=== PATIENT | female | born 1950 | race Caucasian/White ===

== ENCOUNTER 2017-01-04 08:08 | Observation (INO) | payer MEDICARE, BC ==
[2016-12-31 11:42] LABS: Hematocrit 45 % (35-47); Hemoglobin 14.5 g/dl (12.0-16.0); Mean Corpuscular HGB Conc 32 g/dl (31-36); Mean Corpuscular Hemoglobin 29 pg (27-31); Mean Corpuscular Volume 90 fL (80-97); Mean Platelet Volume 8 um3 (7.4-10.4); Red Blood Count 5.02 10^6/ul (4.0-5.4); Red Cell Distribution Width 14 % (10.5-15); White Blood Count 7.5 10^3/ul (3.5-10.8)
[2016-12-31 11:55] LABS: BUN/Creatinine Ratio 21.3 (8-20); Calcium 9.6 mg/dL (8.6-10.3); EGFR African American 92.6 (>60); Potassium 4.1 mmol/L (3.5-5.0)
[~2017-01-04 08:08] MED LIST: Bacitracin IV* 50,000 UNITS INJ ONE; Buffered Lidocaine 0.9% SYRIN* 5 ML/SYR SYRINGE INTRADERM ONE; Famotidine TAB* 20 MG PO ONE; Lidocaine 1% MPF wEPI 200,000* 30 ML SDV ONE; Thrombin 5,000 UNITS* 1 APPLIC KIT - topical use - TOPICAL ONE
[2017-01-04] MEDS ORDERED: ceFAZolin 2 GM PREMIX(*) 2 GM/50 ML BAG IVPB ONE (08:10)
[2017-01-04] MEDS ORDERED: Buffered Lidocaine 0.9% SYRIN* 5 ML/SYR SYRINGE ONE (08:11)
[2017-01-04] MEDS ORDERED: Famotidine TAB* 20 MG ONE (08:11)
[2017-01-04] MEDS ORDERED: fentaNYL* 50 MCG/ML 2 ML VIAL (100 MCG VIAL) ONE ×3 (09:59→12:29)
[2017-01-04] MEDS ORDERED: Propofol* 10 MG/ML 20 ML BTL IV PUSH ONE (09:59)
[2017-01-04] MEDS ORDERED: Lidocaine 2% PF * 5 ML VIAL ONE (09:59)
[2017-01-04] MEDS ORDERED: HYDROcodone/ACETAMIN 5-325 MG* 1 TAB PO PRN (10:54)
[2017-01-04] MEDS ORDERED: HYDROmorphone* 1 MG/ML 1 ML SYR IV PRN (10:54)
[2017-01-04] MEDS ORDERED: DiMENhydriNATE IV* 50 MG/ML VIAL IV PUSH PRN (10:54)
[2017-01-04] MEDS ORDERED: Ondansetron INJ* 2 MG/ML VIAL IV PRN (11:19)
[2017-01-04] MEDS ORDERED: Acetaminophen TAB* 325 MG PO PRN (11:19)
[2017-01-04] MEDS ORDERED: ALPRAZolam TAB* 0.25 MG PO PRN (11:21)
[2017-01-04] MEDS ORDERED: HYDROcodone/ACETAMIN 5-325 MG* 1 TAB ONE (11:54)
[2017-01-04] MEDS: fentaNYL* 50 MCG/ML 2 ML VIAL (100 MCG VIAL) IV PRN ×3 (11:55→12:29)
--- NOTE | 2017-01-04 13:23 | RAD ---
Indication: Lumbar discectomy. Comparison: December 27, 2016 MRI. Technique: Prone crosstable lateral lumbar sacral spine 1035 hours Report: Tissue retractor and linear metallic instrument at the level of the L5-S1 facet joints moderate L5-S1 disc space narrowing. IMPRESSION: Intraoperative control film.
[2017-01-04] MEDS ORDERED: DiMENhydriNATE IV* 50 MG/ML VIAL ONE (13:31)
[2017-01-04] MEDS: HYDROcodone/ACETAMIN 5-325 MG* 1 TAB PO PRN ×2 (17:55→22:38)
[2017-01-05] MEDS: HYDROcodone/ACETAMIN 5-325 MG* 1 TAB PO PRN ×2 (05:55→11:03)
--- NOTE | 2017-01-05 07:40 | PN ---
Progress Note - Progress Note SOAP: Subjective: []POD # 1 Pre op leg pain relieved Patient does note increased numbness in right foot Strength Ok Moderate incisional pain Objective: []Motor intact Dressing intact Decreased sensation sole right foot Assessment: []Satis post op course Plan: []D/C today D/C instructions given
[2017-01-05 07:56] VITALS: BP 145/79
[2017-01-05] MEDS ORDERED: DiMENhydriNATE IV* 50 MG/ML VIAL IV PUSH ONE (08:15)
[2017-01-05] MEDS ORDERED: PARoxetine HCL TAB* 40 MG PO SCH (09:00)
[2017-01-05] MEDS ORDERED: Omeprazole CAP* 20 MG PO SCH (09:00)
[2017-01-05] MEDS ORDERED: Cholecalciferol TAB* 1000 UNITS PO SCH (09:00)
[2017-01-05] MEDS ORDERED: Atorvastatin* 20 MG TAB PO SCH (09:00)
--- NOTE | 2017-01-06 00:52 | OP ---
DATE OF OPERATION: 01/04/17 - ROOM #332 DATE OF : 52 SURGEON: Zeb Fernandez MD SAFETY INVESTIGATOR/CAUSE ANALYST: ELENA Younger ANESTHESIOLOGIST: Marc Guillory MD ANESTHESIA: General. PRE-OP DIAGNOSIS: Recurrent herniated nucleus pulposus, L5-S1 on the right. POST-OP DIAGNOSIS: Recurrent herniated nucleus pulposus, L5-S1 on the right. OPERATIVE PROCEDURE: Redo lumbar diskectomy at L5-S1 on the right with microdissection. DESCRIPTION OF PROCEDURE: After satisfactory general anesthesia was obtained, the patient was placed on the operating room table in a prone position with the chest supported on the Cole frame and the back slightly flexed. The lumbar region was then clipped, prepped, and draped in a sterile manner for revision lumbar diskectomy and her previous incision was infiltrated with 1% Xylocaine with epinephrine after which it was turned down sharply to the level of the lumbar fascia and the scar. The fascia and scar tissue was divided along the spinous processes from L5 to the sacrum on the right side. An intraoperative x- ray was obtained verifying localization of the L5-S1 interspace, after which scar tissue was dissected free from the previous laminectomy site. The laminectomy was extended superiorly until normal dura was encountered as well as inferiorly as preoperative x-ray studies had shown an inferior migration of an extruded disk fragment. At this point in the procedure, the operating microscope was brought into the field and the remainder of the procedure was done under microscopic visualization. Utilizing microdissection, epidural venous structures were coagulated and divided and the scar tissue was dissected free from the lateral edge of the dura. With additional inferior exposure, there was noted to be a freely extruded disk fragment extending down over the S1 vertebral body. This was removed in several fragments. This was in the axillary region of nerve root exposure and with additional dissection, it was noted to be actually sitting between the dural sac and what was likely the S2 nerve root as an additional larger nerve root was noted to be out further laterally. This larger nerve root out laterally remained tethered down by scar tissue. A blunt hook was able to be passed beneath this nerve root. There was not any significant compromise. At the conclusion of the decompression, the nerve roots and thecal sac were noted to be free in their course. After assuring adequate hemostasis, the wound was thoroughly irrigated after which a piece of Gelfoam was placed over the laminectomy defect. The fascia was then reapproximated with 0 Vicryl suture. The subcutaneous tissues were closed with 3-0 Vicryl suture and the skin closed with skin clips. The estimated blood loss was less than 50 cc and the final sponge, padding, and needle counts were correct. The patient was taken to the recovery room extubated and in stable condition. [id number]/[facility] #: [id number] MTDD
--- NOTE | 2017-01-12 05:08 | DS ---
DISCHARGE SUMMARY: DATE OF ADMISSION: 01/04/17 DATE OF DISCHARGE: 01/05/17 DISCHARGE DIAGNOSIS: Recurrent herniated nucleus pulposus, L5-S1 on the right. SPECIAL PROCEDURE: Redo lumbar diskectomy at L5-S1 on the right. HOSPITAL COURSE: This 66-year-old female was seen in the office with a recurrent right-sided lumbar radiculopathy. On 11/27/15, she underwent a lumbar diskectomy at L5-S1 on the right and recovered well postoperatively. Several weeks ago, she developed recurrent pain in the low back and right lower extremity. MRI of the lumbar spine showed a recurrent herniated disk at L5-S1 on the right. She was admitted at this time for elective surgical treatment. On the day of admission, she was taken to surgery where under general anesthesia , a lumbar diskectomy at L5- S1 on the right redo operation was carried out. Postoperatively, she was feeling well. Preoperative right lower extremity symptoms were improving. She was ambulating independently and she was eating, drinking, and voiding without difficulty. Pain was well-controlled with oral pain medications. On the first postoperative day, she was discharged home to the care of her family. DISCHARGE INSTRUCTIONS: Including wound care and activity level were discussed with the patient and provided. She will be seen in office in 7 to 10 days for followup and staple removal. DISCHARGE MEDICATIONS: None. ELENA GARCIA [id number]/[facility] #: [id number] MTDSurjit
== END 2017-01-05 11:05 | disposition home or self-care (01) ==
LOC: OR 08:08 → SSU 13:51
PROVIDERS: ADMIT Neurological Surgery; ATTEND Neurological Surgery
PROC: 01NB0ZZ Release Lumbar Nerve, Open Approach (ICD-10-PCS; 2017-01-04)
PROC: 0SB20ZZ Excision of Lumbar Vertebral Disc, Open Approach (ICD-10-PCS; principal; 2017-01-04 09:30)
DX: M51.17 Intervertebral disc disorders with radiculopathy, lumbosacral region (principal)
CPT/HCPCS: 36415; 72100; 80048; 85027; 86803; 88304; A9270-GY; G0378; J0690; J1240; J2001; J2704; J3010

== ENCOUNTER 2018-05-31 07:50 | Day surgery (SDC) | payer MEDICARE, OTHER ==
[~2018-05-31 07:50] MED LIST changes: +Acetaminophen TAB* 325 MG PO PRN; -Bacitracin IV* 50,000 UNITS INJ ONE; -Famotidine TAB* 20 MG PO ONE; -Lidocaine 1% MPF wEPI 200,000* 30 ML SDV ONE; -Thrombin 5,000 UNITS* 1 APPLIC KIT - topical use - TOPICAL ONE
[2018-05-31] MEDS ORDERED: Midazolam* 1 MG/ML 2 ML VIAL (2 MG) ONE (09:29)
[2018-05-31] MEDS ORDERED: fentaNYL* 50 MCG/ML 2 ML VIAL (100 MCG VIAL) ONE (09:29)
[2018-05-31 10:14] VITALS: BP 134/82
[2018-05-31] MEDS ORDERED: acetaZOLAMIDE TAB* 250 MG ONE ×2 (11:08→14:49)
[2018-05-31] MEDS ORDERED: Povidone Iodine 5% OPTH* 30 ML BTL ONE ×2 (11:08→14:49)
[2018-05-31] MEDS ORDERED: Proparacaine 0.5% OPHTH.SOL* 15 ML BTL ONE ×2 (11:08→14:49)
[2018-05-31] MEDS ORDERED: Cyclopentolate 1% OPTH.SOL* 2 ML BTL ONE ×2 (11:08→14:49)
[2018-05-31] MEDS ORDERED: Lidocaine 1%* 5 ML VIAL ONE ×2 (11:08→14:49)
[2018-05-31] MEDS ORDERED: Phenylephrine 2.5% OPTH.SOL* 2 ML BTL ONE ×2 (11:08→14:49)
[2018-05-31] MEDS ORDERED: Neomycin/Polymy/Dex OPTH.SUSP* MAXITROL 0.1% 5 ML ONE ×2 (11:08→14:49)
[2018-05-31] MEDS ORDERED: Ketorolac 0.5% OPHTH (NF) 0.5 % 5 ML BTL ONE ×2 (11:08→14:49)
[2018-05-31] MEDS ORDERED: Lidocaine 2% EPI 1:200000 MPF*10-20 ML VIAL ONE ×2 (11:08→14:49)
--- NOTE | 2018-05-31 11:31 | OP ---
DATE OF OPERATION: 05/31/2018. DATE OF : 1950. SURGEON: Andrew Paez M.D. PREOPERATIVE DIAGNOSIS: Cataract right eye. POSTOPERATIVE DIAGNOSIS: Cataract right eye. OPERATIVE PROCEDURE: Extracapsular cataract extraction with intraocular lens implant right eye. PROCEDURE: The patient was brought to the operating room after being given 1/2% Alcaine with epineph rine drops in the preoperative area. The eye was prepped and draped in the usual sterile fashion. S terile drape and eyelid speculum were placed. Again, topical 1/2% Alcaine with epinephrine was given . A paracentesis incision was made at the 9 o'clock position with the No.75 blade. Clear cornea inc ision 2.2 x 2.2-mm was created at the 12 o'clock position starting at the anterior limbus using the 2 .2-mm keratome. The anterior chamber was irrigated with 0.4 mL of 1% non-preservative intracameral l idocaine and filled with DisCoVisc. A capsulorrhexis was completed using the cystotome and the Utrat a forceps. Hydrodissection was performed with balanced salt solution. The lens nucleus was removed w ith the Phacoemulsification handpiece without incident. Cortex was removed with the irrigation-aspir ation handpiece. The capsular bag was re-inflated using DisCoVisc and an [id number] 20 implant was inser karol with the shooter. The irrigation-aspiration handpiece was used to remove all residual DisCoVisc. The eye was refilled with balanced salt solution and the wound checked and found to be watertight. Topical Maxitrol drops were given. [id number]/[facility] #: [id number]
== END 2018-05-31 10:23 | disposition home or self-care (01) ==
LOC: OREAST 07:50
PROVIDERS: ATTEND Specialist
DX: H25.811 Combined forms of age-related cataract, right eye (principal); H43.813 Vitreous degeneration, bilateral; F41.8 Other specified anxiety disorders
CPT/HCPCS: A9270-GY; J2250; J3010; V2632

== ENCOUNTER → 2018-06-07 12:51 | Day surgery (SDC) | payer MEDICARE, OTHER ==
[~2018-06-07 12:51] MED LIST changes: +Cyclopentolate 1% OPTH.SOL* 2 ML BTL ONE; +Ketorolac 0.5% OPHTH (NF) 0.5 % 5 ML BTL ONE; +Lidocaine 1%* 5 ML VIAL ONE; +Lidocaine 2% EPI 1:200000 MPF*10-20 ML VIAL ONE; +Midazolam* 1 MG/ML 2 ML VIAL (2 MG) ONE; +Neomycin/Polymy/Dex OPTH.SUSP* MAXITROL 0.1% 5 ML ONE; +Phenylephrine 2.5% OPTH.SOL* 2 ML BTL ONE; +Povidone Iodine 5% OPTH* 30 ML BTL ONE; +Proparacaine 0.5% OPHTH.SOL* 15 ML BTL ONE; +acetaZOLAMIDE TAB* 250 MG ONE
[2018-06-07 15:10] VITALS: BP 146/87
--- NOTE | 2018-06-08 06:20 | OP ---
DATE OF OPERATION: 06/07/18 [facility] DATE OF : 52 SURGEON: Andrew Paez M.D. PREOPERATIVE DIAGNOSIS: Cataract, left eye. POSTOPERATIVE DIAGNOSIS: Cataract, left eye. OPERATIVE PROCEDURE: Extracapsular cataract extraction with IOL, intraocular lens implant left eye. DESCRIPTION OF PROCEDURE: The patient was brought to the operating room after being given 1/2% Alcaine with epinephrine drops in the preoperative area. The eye was prepped and draped in the usual sterile fashion. Sterile drape and eyelid speculum were placed. Again, topical 1/2% Alcaine with epinephrine was given. A paracentesis incision was made at the 3 o'clock position with the No.75 blade. Clear cornea incision 2.2 x 2.2-mm was created at the 6 o'clock position starting at the anterior limbus using the 2.2-mm keratome. The anterior chamber was irrigated with 0.4 mL of 1% non-preservative intracameral lidocaine and filled with DisCoVisc. A capsulorrhexis was completed using the cystotome and the Utrata forceps. Hydrodissection was performed with balanced salt solution. The lens nucleus was removed with the Phacoemulsification handpiece without incident. Cortex was removed with the irrigation-aspiration handpiece. The capsular bag was re-inflated using DisCoVisc and an SN60WF 20.5 implant was inserted with the shooter. The irrigation-aspiration handpiece was used to remove all residual DisCoVisc. The eye was refilled with balanced salt solution and the wound checked and found to be watertight. Topical Maxitrol drops were given. [id number]/[facility] #: [id number] [facility]
== END | disposition home or self-care (01) ==
LOC: OREAST 12:51
PROVIDERS: ATTEND Specialist
DX: H25.812 Combined forms of age-related cataract, left eye (principal); H43.813 Vitreous degeneration, bilateral; E78.5 Hyperlipidemia, unspecified; F41.8 Other specified anxiety disorders; M54.16 Radiculopathy, lumbar region; G47.33 Obstructive sleep apnea (adult) (pediatric)
CPT/HCPCS: A9270-GY; J2250; V2632

== ENCOUNTER 2018-11-09 05:35 | Day surgery (SDC) | payer MEDICARE, OTHER ==
--- NOTE | 2018-10-30 13:11 | HP ---
PREOPERATIVE HISTORY AND PHYSICAL: DATE OF ADMISSION: 11/09/18. ATTENDING PHYSICIAN: Dr. Ena Monge* (dictated by ELENA Butcher). CHIEF COMPLAINT: Right knee pain. HISTORY OF PRESENT ILLNESS: The patient is a 68-year-old female who injured her right knee while jumping rope roughly 2 weeks ago. She has had swelling and pain and underwent MRI of the right knee, which has revealed evidence of meniscal tear. Due to ongoing pain and decreased quality of life, she has now elected to proceed with right knee arthrosc[place] [facility], which is scheduled with Dr. Monge, 11/09/18. 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 PAST SURGICAL HISTORY: She has had lumbar surgery by Dr. Fernandez in October of 2015 and again in October of 2016 from resultant right lower extremity nerve pathology. CURRENT MEDICATIONS: 1. Omeprazole 20 mg daily. 2. Paroxetine 40 mg daily. 3. Lipitor 20 mg daily. 4. Vitamin D 800 mg daily. 5. Calcium 800 mg daily. 6. Multivitamin. She is weaning off her prednisone tablet, 2 tabs every morning. She does not know the dose. ALLERGIES: No known drug allergies. She does have a rash with LATEX products. FAMILY HISTORY: Significant for her brother and mother having hypertension. Mother and father with a history of cancer. SOCIAL HISTORY: She lives with her spouse. She is retired [employer] teacher. She does not smoke. She does not drink alcohol. She does not use illicit drugs. REVIEW OF SYSTEMS: A 14-point review of systems reviewed with the patient and is positive for hearing changes, peripheral neuropathy in the right foot, depression and anxiety. PHYSICAL EXAMINATION GENERAL: The patient is pleasant and cooperative. Alert and oriented x3, no acute distress. HEENT: Pupils equal, round, and reactive to light. LUNGS: Clear to auscultation without wheeze. HEART: Regular rate and rhythm without murmur. ABDOMEN: Nontender, nondistended. Normoactive bowel sounds x4 quadrants. EXTREMITIES: Upper extremities within normal limits. Lower extremities: The right knee reveals motion from 10 degrees to 120 degrees flexion. She has a positive Shelly's sign. Her sensation and circulation are intact. She has active dorsiflexion, 5/5 strength in the right lower extremity. Her calf is soft and nontender. She does have some decreased sensation to the plantar aspect of the right foot. IMPRESSION: Medial meniscal tear, right knee. PLAN: The patient has discussed risks and benefits of surgery with Dr. Monge and she elected to proceed with surgical intervention, right knee arthroscopy on 11/09/18. All questions were answered today at her surgical preop visit, 03/12. ELENA BUTCHER [id number]/[facility] #: [id number] MTDSurjit
[~2018-11-09 05:35] MED LIST changes: -Acetaminophen TAB* 325 MG PO PRN; -Buffered Lidocaine 0.9% SYRIN* 5 ML/SYR SYRINGE INTRADERM ONE; +Buffered Lidocaine 1% SYRIN* 1 ML/SYRINGE INTRADERM ONE; -Cyclopentolate 1% OPTH.SOL* 2 ML BTL ONE; +Dexamethasone IV* 4 MG/ML 1 ML (4 MG) IV SLOW PU ONE; +Famotidine IV* 10 MG/ML 2 ML (20 mg) IV ONE; -Ketorolac 0.5% OPHTH (NF) 0.5 % 5 ML BTL ONE; +Lactated Ringers 1000 ML Bag* 1,000 ML IV SCH; -Lidocaine 1%* 5 ML VIAL ONE; -Lidocaine 2% EPI 1:200000 MPF*10-20 ML VIAL ONE; -Midazolam* 1 MG/ML 2 ML VIAL (2 MG) ONE; -Neomycin/Polymy/Dex OPTH.SUSP* MAXITROL 0.1% 5 ML ONE; -Phenylephrine 2.5% OPTH.SOL* 2 ML BTL ONE; -Povidone Iodine 5% OPTH* 30 ML BTL ONE; -Proparacaine 0.5% OPHTH.SOL* 15 ML BTL ONE; -acetaZOLAMIDE TAB* 250 MG ONE
[2018-11-09] MEDS ORDERED: Dexamethasone IV* 4 MG/ML 1 ML (4 MG) ONE (06:27)
[2018-11-09] MEDS ORDERED: ceFAZolin 2 GM in NS PREMIX(*) 2 GM/100 ML BAG IVPB ONE (06:27)
[2018-11-09] MEDS ORDERED: Famotidine IV* 10 MG/ML 2 ML (20 mg) ONE (06:27)
[2018-11-09] MEDS ORDERED: methylPREDNISolone ACETATE 80* 80 MG/ML 1 ML VIAL ONE (06:49)
[2018-11-09] MEDS ORDERED: ROPIVACAINE 5 MG/ML 30 ML BTL (0.5%) ONE (06:49)
[2018-11-09] MEDS ORDERED: EPINEPHRINE 1 MG/ML 1 ML VIAL ONE (06:49)
[2018-11-09] MEDS ORDERED: fentaNYL* 50 MCG/ML 5 ML VIAL (250 MCG VIAL) ONE (07:06)
[2018-11-09] MEDS ORDERED: Ondansetron INJ* 2 MG/ML VIAL ONE (07:07)
[2018-11-09] MEDS ORDERED: Ketorolac INJ* 30 MG/ML 1 ML VIAL ONE (07:07)
[2018-11-09] MEDS ORDERED: Propofol* 10 MG/ML 20 ML BTL ONE (07:07)
[2018-11-09] MEDS ORDERED: Lidocaine 2% PF * 5 ML VIAL ONE (07:07)
[2018-11-09] MEDS ORDERED: Midazolam* 1 MG/ML 5 ML VIAL (5 MG) ONE (07:07)
[2018-11-09] MEDS ORDERED: Phenylephrine 10 MG/ML VIAL* 1 ML VIAL ONE (07:09)
[2018-11-09] MEDS ORDERED: EPHEDrine (Pressors)* 50 MG/ML VIAL ONE (07:33)
[2018-11-09] MEDS ORDERED: oxyCODONE/Acetamin 5/325 MG* TAB PO PRN (07:42)
[2018-11-09] MEDS ORDERED: fentaNYL* 50 MCG/ML 2 ML VIAL (100 MCG VIAL) IV PRN (07:42)
[2018-11-09] MEDS ORDERED: Ondansetron INJ* 2 MG/ML VIAL IV PRN (07:42)
[2018-11-09] MEDS ORDERED: DiMENhydriNATE IV* 50 MG/ML VIAL IV PUSH PRN (07:42)
[2018-11-09] MEDS ORDERED: Naloxone* 0.4 MG/ML 1 ML VIAL IV PRN (07:42)
[2018-11-09 10:12] VITALS: BP 141/83
--- NOTE | 2018-11-09 22:49 | OP ---
DATE OF OPERATION: 11/09/18 - [facility] DATE OF : 52 ATTENDING SURGEON: Ena Monge MD SPUD SORTER: ELENA Leo. Mr. Hanson did help throughout the procedure with preparation of the leg, wound retraction, manipulation of the knee, and wound closure. ANESTHESIOLOGIST: Dr. Decker. ANESTHESIA: General. PRE-OP DIAGNOSIS: Right knee pain with medial meniscal tear, mild degenerative osteoarthritis. POST-OP DIAGNOSIS: Right knee pain with medial meniscal tear, mild degenerative osteoarthritis. OPERATIVE PROCEDURE: Right knee arthroscopy with partial medial meniscectomy. SPECIMEN: None. COMPLICATIONS: None. ESTIMATED BLOOD LOSS: Less than 25 cc. BRIEF HISTORY/INDICATION: Ms. Quinones is a 68-year-old female who had acute injuries several weeks ago with the sudden onset of posteromedial joint pain and mechanical symptoms. She had significant pain and effusion. Conservative treatment failed. MRI confirmed a medial meniscal tear. Due to severe pain and decreased quality of life, the patient elected to undergo right knee arthroscopy with partial medial meniscectomy, possible chondroplasty, possible synovectomy, possible plica excision. Informed consent was obtained from her. She understood the risks of surgery included, but were not limited to, bleeding , infection, damage to nearby structures, continued pain, need for further surgery, re-tear of the meniscus, stroke, heart attack, blood clot, and . She wished to proceed. INTRAOPERATIVE FINDINGS: Intraoperatively, the patient had a large disc-sized parrot-beak type tear involving the posterior 50% of the medial meniscus. This was in the white-red and red-red zone. The patient was noted to have some grade 2 and 3 Outerbridge cartilage changes of the medial patellar facet and medial femoral condyle. Minimal exposed subchondral bone. DESCRIPTION OF PROCEDURE: Ms. Quinones was identified in the preanesthesia unit. Her right lower extremity was marked as the correct operative site. Informed consent was signed and placed in the chart. The patient was taken to the operating room and placed under general anesthesia. Right lower extremity was prepped and draped in the usual sterile fashion. Preop time-out was made to correctly identify the patient, side, and site. Appropriate perioperative antibiotics were given within 1 hour of incision. A 1-1/2 cm standard anterolateral portal incision was made with a 10 blade and carried through the capsule. Trocar was introduced. As soon as the light and water sources were turned on, there was immediate visualization of the suprapatellar pouch. A tour of the knee joint was performed. Suprapatellar pouch showed no obvious abnormality. Patellofemoral compartment showed some grade 2 and 3 Outerbridge cartilage changes along the medial patella facet. There was no visible exposed subchondral bone. No significant cartilage flapping. Medial gutter showed no obvious loose body or plica. Medial compartment showed an anteriorly displaced parrot-beak type tear of the medial meniscus. Medial femoral condyle had some grade 2 and 3 Outerbridge cartilage changes with no obvious exposed subchondral bone. ACL and PCL appeared to be intact. The knee was placed in a [id number] position. There was no obvious lateral meniscal tear. No obvious lateral compartment degenerative changes. No abnormality or loose body in the lateral gutter. Under direct visualization, a medial portal incision was made with a 15 blade. Probe was introduced. A second tour of the knee joint was performed. There were no additional findings noted. Straight biter and shaver were used to perform partial medial meniscectomy. This was mainly in the white-red and red-red zone. Radiofrequency ablation wand was used for coagulation as well as to smooth the border of the medial meniscus. Further probing of the medial meniscus showed no additional tears or flipped fragments. The knee was copiously irrigated with sterile saline. All instruments were removed. Incisions were closed using 3-0 nylon suture. Intra-articular injection of 80 mg Depo-Medrol and 6 cc of 0.25% Marcaine was placed in the knee joint. The patient's incisions were covered with Xeroform, 4x4's, Webril. Gaurav wrap and cold pack were placed over this. The patient's anesthesia was reversed without difficulty. She was taken to the PACU in stable condition. Intended weightbearing will be weightbearing as tolerated. Intended DVT prophylaxis will be aspirin. [id number]/[facility] #: [id number] [facility]
== END 2018-11-09 10:15 | disposition home or self-care (01) ==
LOC: OR 05:35
PROVIDERS: ATTEND Orthopaedic Surgery Adult Reconstructive Orthopaedic Surgery
DX: S83.241A Other tear of medial meniscus, current injury, right knee, initial encounter (principal); M17.11 Unilateral primary osteoarthritis, right knee; K21.9 Gastro-esophageal reflux disease without esophagitis; E78.00 Pure hypercholesterolemia, unspecified; F32.9 Major depressive disorder, single episode, unspecified; F41.9 Anxiety disorder, unspecified; G62.9 Polyneuropathy, unspecified; Z91.040 Latex allergy status; X50.1XXA Overexertion from prolonged static or awkward postures, initial encounter; Y93.56 Activity, jumping rope
CPT/HCPCS: J0690; J1040; J1100; J1885; J2250; J2405; J2704; J2795; J3010